=== PATIENT | female | born 1955 | race Caucasian/White ===

== ENCOUNTER 2017-04-19 17:26 | Emergency (ER) | payer OTHER ==
[~2017-04-19] VITALS: Ht 170.2 cm; Wt 120.0 kg
[~2017-04-19 17:26] MED LIST: CYCL-36 PO; IBUP-232 PO; TYLE3 PO; Z.0.NO CURRENT MEDS
[2017-04-19 17:34] VITALS: BP 266/126; PULSE 100; RESP 16; TEMP 98.4; O2SAT 96
--- NOTE | 2017-04-19 19:22 | PD ---
HPI Chief Complaint: Skin Problem Time Seen by Provider: 19:04 Travel History International Travel<30 days: No Contact w/Intl Traveler<30days: No Traveled to known affect area: No History of Present Illness HPI pt is a 61 m 1yr old female with many days worsening lump and raise red carvajal on her left breast medial aspect starting at midline to medial 1 /3 of breast tissue no drainage no eschar and no nipple drainage , she has been using warm compresses and topical ointment without improvement , She denies diabetes no fever she has not seen another provider for this complaint. progressing over weeks She has not seen a MD for this complaint and not for years PFSH Past Medical History Blood Disorders: No Cancer: No Cardiovascular Problems: No Chemotherapy: No Endocrine: No Genitourinary: No Immune Disorder: No Musculoskeletal: No Neurologic: No Psychiatric: No Respiratory: No Radiation Therapy: No : 7 Para: 5 Miscarriage: 2 Past Surgical History AICD: No Joint Replacement: No Pacemaker: No Tonsillectomy: Yes Social History Alcohol Use: No Tobacco Use: No Substance Use: No Allergies-Medications (Allergen,Severity, Reaction): Coded Allergies: No Known Allergies (Verified Allergy, Unknown, 04/19/17) Reported Meds & Prescriptions Reported Meds & Active Scripts Active Lisinopril 2.5 Mg Tab 2.5 Mg PO DAILY Clindamycin (Clindamycin HCl) 300 Mg Cap 300 Mg PO TID Review of Systems Except as stated in HPI: all other systems reviewed are Neg Cardiovascular: Positive: Chest Pain or Discomfort (left breast hard indurated area medial breast tissue four days getting worse) Physical Exam Narrative GENERAL: Nontoxic appearing in no acute distress lying comfortably in the stretcher SKIN: Warm and dry. hard indurated 5 cm area on medial aspect of left breast, skin overlying red linear streking almost appears to be in dermatomal distribution HEAD: Atraumatic. Normocephalic. EYES: Pupils equal and round. No scleral icterus. No injection or drainage. ENT: No nasal bleeding or discharge. Mucous membranes pink and moist. NECK: Trachea midline. No JVD. CARDIOVASCULAR: Regular rate and rhythm. Breast infected left medial aspect , not near nipple RESPIRATORY: No accessory muscle use. Clear to auscultation. Breath sounds equal bilaterally. GASTROINTESTINAL: Abdomen soft, non-tender, nondistended. Hepatic and splenic margins not palpable. MUSCULOSKELETAL: Extremities without clubbing, cyanosis, or edema. No obvious deformities. NEUROLOGICAL: Awake and alert. No obvious cranial nerve deficits. Motor grossly within normal limits. Five out of 5 muscle strength in the arms and legs. Normal speech. PSYCHIATRIC: Appropriate mood and affect; insight and judgment normal. Data Data Last Documented VS Vital Signs Date Time Temp Pulse Resp B/P (MAP) Pulse Ox O2 Delivery O2 Flow Rate FiO2 04/20/17 00:28 04/20/17 00:00 82 04/19/17 17:34 98.4 16 96 Orders Orders Us Breast Unilateral (04/19/17 ) Complete Blood Count With Diff (04/19/17 20:26) Comprehensive Metabolic Panel (04/19/17 20:26) Blood Culture (04/19/17 20:26) Ketorolac Inj (Toradol Inj) (04/19/17 20:30) Clindamycin 600 Mg/Ns Premix (Cleocin 60 (04/19/17 21:15) Lidocai-Epi 2%-1:100,000 Inj (Xylocaine- (04/19/17 23:30) Ed Discharge Order (04/20/17 00:13) Fluid Culture And Gram Stain (04/20/17 00:16) Cytology Request For Service (04/20/17 00:16) Labs Laboratory Tests Test 04/19/17 20:50 White Blood Count 13.3 TH/MM3 Red Blood Count 4.61 MIL/MM3 Hemoglobin 14.0 GM/DL Hematocrit 39.8 % Mean Corpuscular Volume 86.3 FL Mean Corpuscular Hemoglobin 30.4 PG Mean Corpuscular Hemoglobin Concent 35.2 % Red Cell Distribution Width 12.9 % Platelet Count 268 TH/MM3 Mean Platelet Volume 8.2 FL Neutrophils (%) (Auto) 67.3 % Lymphocytes (%) (Auto) 23.8 % Monocytes (%) (Auto) 7.6 % Eosinophils (%) (Auto) 1.0 % Basophils (%) (Auto) 0.3 % Neutrophils # (Auto) 9.0 TH/MM3 Lymphocytes # (Auto) 3.2 TH/MM3 Monocytes # (Auto) 1.0 TH/MM3 Eosinophils # (Auto) 0.1 TH/MM3 Basophils # (Auto) 0.0 TH/MM3 CBC Comment DIFF FINAL Differential Comment Blood Urea Nitrogen 11 MG/DL Creatinine 0.89 MG/DL Random Glucose 128 MG/DL Total Protein 7.8 GM/DL Albumin 3.4 GM/DL Calcium Level 8.6 MG/DL Alkaline Phosphatase 84 U/L Aspartate Amino Transf (AST/SGOT) 17 U/L Alanine Aminotransferase (ALT/SGPT) 15 U/L Total Bilirubin 0.6 MG/DL Sodium Level 137 MEQ/L Potassium Level 3.3 MEQ/L Chloride Level 102 MEQ/L Carbon Dioxide Level 29.8 MEQ/L Anion Gap 5 MEQ/L Estimat Glomerular Filtration Rate 64 ML/MIN MDM Medical Decision Making Medical Screen Exam Complete: Yes Emergency Medical Condition: Yes Differential Diagnosis breast abscess vs zoster vs breast CA ,. lesion is pain ful and rapidly progressed so CA is lower on the differential than strep or staph abscess Narrative Course US Breast and then I and D if obvious skin abscess Procedures Procedure Narrative Needle aspiration of pus from the left breast with 2 cc of seropurulent fluid aspirated after localized with a US linear probe , betadine prep and drape sterile technique , aspirated fluid sent to cytology and cultures Diagnosis Primary Impression: Breast abscess Patient Instructions: Breast Abscess Drainage (DC), General Instructions Scripts Lisinopril (Lisinopril) 2.5 Mg Tab 2.5 MG PO DAILY, #30 TAB 0 Refills Prov: Arsenio Do MD 04/20/17 Clindamycin (Clindamycin) 300 Mg Cap 300 MG PO TID for Infection, #30 CAP 0 Refills Prov: Arsenio Do MD 04/20/17 Disposition: 01 DISCHARGE HOME Condition: Good Arsenio Do MD Apr 19, 2017 19:22
[2017-04-19] MEDS ORDERED: CLINDAMYCIN INJ 600 MG in SODIUM CHLORIDE 0.9% INJ 100 ML IV ONE (20:30)
[2017-04-19] MEDS ORDERED: KETOROLAC TROMETHAMINE 30 MG/ML (IVP) VIAL IV PUSH ONE (20:30)
[2017-04-19 21:10] LABS: BASOPHIL % 0.3 % (0.0-2.0); EOSINOPHIL # 0.1 TH/MM3 (0-0.4); HEMATOCRIT 39.8 % (35.0-46.0); LYMPH % 23.8 % (9.0-44.0); LYMPHOCYTE # 3.2 TH/MM3 (1.0-4.8); MEAN CELL VOLUME 86.3 FL (80.0-100.0); MEAN CORPUSCULAR HEMOGLOBIN 30.4 PG (27.0-34.0); MEAN CORPUSCULAR HGB CONC 35.2 % (32.0-36.0); MEAN PLATELET VOLUME 8.2 FL (7.0-11.0); MONO % 7.6 % (0.0-8.0); NEUT % 67.3 % (16.0-70.0); PLATELET COUNT 268 TH/MM3 (150-450); RED BLOOD COUNT 4.61 MIL/MM3 (4.00-5.30); RED CELL DISTRIBUTION WIDTH 12.9 % (11.6-17.2); WHITE BLOOD COUNT 13.3 TH/MM3 (4.0-11.0)
[2017-04-19] MEDS ORDERED: CLINDAMYCIN 600 MG/NS PREMIX 50 ML IV ONE (21:15)
[2017-04-19 21:26] LABS: ALBUMIN 3.4 GM/DL (3.4-5.0); AST (GOT) 17 U/L (15-37); BICARBONATE 29.8 MEQ/L (21.0-32.0); BLOOD UREA NITROGEN 11 MG/DL (7-18); CALCIUM 8.6 MG/DL (8.5-10.1); CHLORIDE 102 MEQ/L (98-107); CREATININE 0.89 MG/DL (0.50-1.00); GLOMERULAR FILTRATION RATE 64 ML/MIN (>89); GLUCOSE,RANDOM 128 MG/DL (74-106); SODIUM (NA) 137 MEQ/L (136-145)
[2017-04-19 21:28] LABS: ALT (GPT) 15 U/L (10-53)
[2017-04-19 21:30] LABS: ALKALINE PHOSPHATASE 84 U/L (45-117); TOTAL BILIRUBIN ADULT 0.6 MG/DL (0.2-1.0); TOTAL PROTEIN 7.8 GM/DL (6.4-8.2)
[2017-04-19 22:10] VITALS: BP 211/91; PULSE 82
--- NOTE | 2017-04-19 22:40 | RADRPT ---
EXAM DATE/TIME: 04/19/2017 21:37 [facility] COMPARISON: No previous studies available for comparison. INDICATIONS : Left breast pain and swelling. MEDICAL HISTORY : . Measles. SURGICAL HISTORY : Tonsillectomy. Cervical spine surgery. ENCOUNTER: Initial ACUITY: 3 days PAIN SCORE: 4/10 LOCATION: Left breast. FINDINGS: Ultrasound examination of the left breast was performed. This demonstrates a small complex collection measuring 1.9 x 1.9 x 1.8 cm at the 8: 00 position approximately 20-25 cm from the nipple. There is edema and hyperemia of the surrounding s oft tissues. CONCLUSION: 1. Findings consistent with a small breast abscess measuring 1.9 cm at the 8: 2. 00 position, as above. Iker Fleming MD on April 19, 2017 at 22:37 Board Certified Radiologist. This report was verified electronically.
[2017-04-19] MEDS ORDERED: LIDOCAINE 2%/EPINEPHrine 1:100,000 20ML MDV NERV BLOCK ONE (23:30)
[2017-04-20] VITALS: BP 171/77; PULSE 82
[2017-04-20] MEDS ORDERED: CLIN300C5 PO (00:16)
[2017-04-20] MEDS ORDERED: LISI2.5T3 PO (00:16)
== END 2017-04-20 00:29 | disposition home or self-care (01) ==
LOC: NEPC 17:26
DX: N61.1 Abscess of the breast and nipple (principal)
CPT/HCPCS: 10160; 76642; 80053; 85025; 87040; 87070; 88173; 88305; 96374; 96375; 99284; J1885